=== PATIENT | male | born 1975 | race Two or more races ===

== ENCOUNTER 2022-03-09 02:19 | Emergency (ER) | payer MEDICAID ==
[~2022-03-09] VITALS: Ht 175.3 cm; Wt 86.6 kg
--- NOTE | 2022-03-09 02:58 | NUR ---
[facility] AND [facility] FOUND RUNNING INTO TRAFFIC, DELUSIONAL. ON 5150 FOR DTS/DTO. DENIES SI PT A/OX3. RESP EVEN AND NONLABORED ON R/A. CONNECTED PT TO POX AND MONITOR. SAFETY MEASURES IN PLACE; SITTER AT PT'S BEDSIDE. PT WEARING GOWN, BELONGINGS COLLCETED AND PLACED IN LOCKER, WANDED BY SECURITY.
--- NOTE | 2022-03-09 03:30 | NUR ---
COVID ANTIGEN SWAB COLLECTED AND SENT TO LAB
--- NOTE | 2022-03-09 03:30 | NUR ---
URINE COLLECTED AND SENT TO LAB
--- NOTE | 2022-03-09 03:33 | NUR ---
SCOW HAND AT PT'S BEDSIDE
[2022-03-09 03:44] LABS: BASOPHILS # (AUTO) 0.1 K/uL (0.0-0.2); BASOPHILS % (AUTO) 0.4 % (0.0-2.0); EOSINOPHILS % (AUTO) 0.1 % (0.0-6.0); HEMATOCRIT 48 % (39-51); HEMOGLOBIN 16.2 g/dL (13.5-17.5); LYMPHOCYTES # (AUTO) 1.6 K/uL (0.8-4.8); LYMPHOCYTES % (AUTO) 13.1 % (20.0-44.0); MEAN CORPUSCULAR HGB CONC 34 g/dl (31.0-36.0); MEAN CORPUSCULAR VOLUME 88 fL (80-96); MONOCYTES # (AUTO) 0.8 K/uL (0.1-1.30); MONOCYTES % (AUTO) 6.7 % (2.0-12.0); NEUTROPHILS # (AUTO) 9.9 K/uL (1.8-8.9); NEUTROPHILS % (AUTO) 79.7 % (43.0-81.0); PLATELET COUNT (AUTO) 245 K/uL (150-450); RED BLOOD CELL COUNT(AUTO) 5.46 MIL/uL (4.5-6.0); WHITE BLOOD COUNT (AUTO) 12.4 K/uL (4.3-11.0)
[2022-03-09 03:50] LABS: BILIRUBIN,URINE SMALL (NEGATIVE); COLOR,URINE YELLOW (YELLOW); LEUKOCYTE ESTERASE ,URINE NEGATIVE (NEGATIVE); NITRITE, URINE NEGATIVE (NEGATIVE); PROTEIN,URINE >=300 mg/dl (NEGATIVE); UGLUCOSE NEGATIVE (NEGATIVE); UROBILINOGEN,URINE 0.2 EU/dL (0.2)
[2022-03-09 03:53] LABS: CALCIUM, SERUM 9.2 mg/dL (8.5-10.1); CARBON DIOXIDE 27 mmol/L (21-32); CHLORIDE 104 mmol/L (98-107); CREATININE 1.8 mg/dL (0.6-1.3); GLUCOSE 127 mg/dL (74-106); POTASSIUM 3.5 mmol/L (3.5-5.1); SODIUM SERUM 142 mmol/L (136-145); UREA NITROGEN, BLOOD 21 mg/dL (7-18)
[2022-03-09 03:59] LABS: ALANINE AMINOTRANSFERASE 26 U/L (12-78); ALBUMIN 4.4 g/dL (3.4-5.0); ALCOHOL, BLOOD < 3 mg/dL (0-0); ALKALINE PHOSPHATASE 59 U/L (46-116); ASPARTATE AMINOTRANSFERASE 23 U/L (15-37); BILIRUBIN,DIRECT 0.2 mg/dL (0.0-0.2); BILIRUBIN,TOTAL 0.9 mg/dL (0.2-1.0)
[2022-03-09 04:01] LABS: ACETAMINOPHEN 0 ug/ml (10-30)
[2022-03-09] MEDS ORDERED: LORAZEPAM INJ 2 MG/ML VIAL IM ONE (05:30)
[2022-03-09] MEDS ORDERED: LORAZEPAM INJ 2 MG/ML VIAL ONE (05:36)
--- NOTE | 2022-03-09 05:42 | NUR ---
AGGITATION AND RESTLESSNESS NOTED. VSS. ATIVAN 2MG IM
[2022-03-09 07:49] LABS: BACTERIA,URINE Few /HPF (None Seen); SPERM,URINE Moderate /HPF (None Seen); SQUAMOUS EPITHELIAL CELL,UR Few /HPF (None Seen); WBC,URINE 0-2 /HPF (0-3)
--- NOTE | 2022-03-09 10:13 | NUR ---
LUIS A faxed clinicals to the following [facility] for possible placement: [facility] TEL: [phone] fax: [phone] [facility] tel:[phone] FAX:[phone]; [facility] tel:[phone]; 4 FAX: [phone] Jen Loyd
--- NOTE | 2022-03-09 11:15 | NUR ---
Ealine from [facility] Dr. Leonardo Sterling second floor behavioral room 1 bed number [id number] report [phone]
--- NOTE | 2022-03-09 11:39 | NUR ---
[facility] CALLED FOR TRANSPORT ETA [phone] PER CORTEZ
--- NOTE | 2022-03-09 11:41 | NUR ---
report given to Miladis BARBA to continue care.
[2022-03-09 13:00] VITALS: BP 130/81
--- NOTE | 2022-03-09 13:48 | NUR ---
patient picked up [facility] going to [facility] in no distress.
== END 2022-03-09 13:48 ==
LOC: ER 02:22
DX: F19.129 Other psychoactive substance abuse with intoxication, unspecified (principal); N28.9 Disorder of kidney and ureter, unspecified; D72.829 Elevated white blood cell count, unspecified; F23 Brief psychotic disorder; Z20.822 Contact with and (suspected) exposure to COVID-19
CPT/HCPCS: 99285; 96372; 85025; 80048; 82550; 80076; 81001; 36415; 87426; 80143; 80320; 80307; J2060; C9803; G0480